=== PATIENT | male | born 2000 | race Two or more races ===

== ENCOUNTER 2020-09-10 12:34 | Emergency (ER) | payer OTHER ==
[~2020-09-10] VITALS: Ht 182.9 cm; Wt 87.5 kg
[2020-09-10 12:49] VITALS: BP 119/59; Ht 182.9 cm; Wt 87.5 kg
== END 2020-09-10 14:23 | disposition home or self-care (01) ==
LOC: ED 12:34
DX: S61.211A Laceration without foreign body of left index finger without damage to nail, initial encounter (principal); W25.XXXA Contact with sharp glass, initial encounter; Y93.89 Activity, other specified; Y92.89 Other specified places as the place of occurrence of the external cause; Y99.8 Other external cause status
CPT/HCPCS: 90715